=== PATIENT | female | born 1955 | race Caucasian/White ===

== ENCOUNTER 2020-05-18 17:45 | Observation (INO) ==
[2020-05-18] MEDS ORDERED: Ondansetron 4 mg VIAL 2 MG/ML 2 ml VIAL IV ONE (18:36)
[2020-05-18] MEDS ORDERED: Lorazepam PYXIS KEY PRN (18:36)
[2020-05-18] MEDS ORDERED: HYDROmorphone 1 MG/1 ML SYRINGE IV ONE (18:36)
[2020-05-18] MEDS ORDERED: LORazepam 2 mg VIAL 1 ml IV ONE (18:36)
[2020-05-18] MEDS ORDERED: NS 0.9% 1000 ml BAG 1,000 ML IV ONE (18:37)
[2020-05-18] MEDS ORDERED: Dexamethasone IV 4 MG/ML VIAL 1 ml VIAL IV SLOW PU ONE (18:41)
[2020-05-18 19:03] LABS: ABS Basophils 0.1 10^3/ul (0-0.2); ABS Eosinophils 0.2 10^3/ul (0-0.6); ABS Lymphocytes 3.5 10^3/ul (1.0-4.8); ABS Monocytes 0.7 10^3/ul (0-0.8); ABS Neutrophils 9.4 10^3/ul (1.5-7.7); Eosinophil % 1.1 %; Hematocrit 42 % (35-47); Hemoglobin 14.4 g/dL (12.0-16.0); Lymphocyte % 25.3 %; Mean Corpuscular HGB Conc 34 g/dL (31-36); Mean Corpuscular Hemoglobin 31 pg (27-31); Mean Corpuscular Volume 90 fL (80-97); Mean Platelet Volume 7.9 fL (7.4-10.4); Nucleated Red Blood Cells % 0.1; Platelet Count 281 10^3/uL (150-450); Red Blood Count 4.67 10^6 /uL (3.70-4.87); Red Cell Distribution Width 13 % (10-15); White Blood Count 13.8 10^3/uL (3.5-10.8)
[2020-05-18 19:25] LABS: Albumin 4.4 g/dL (3.2-5.2); Albumin/Globulin Ratio 1.5 (1-3); C Reactive Protein 1.71 mg/L (<8.01); Calcium 10.1 mg/dL (8.6-10.3); EGFR African American 75.8 (>60); EGFR Non-African American 62.6 (>60); Globulin 2.9 g/dL (2-4); Potassium 3.3 mmol/L (3.5-5.0); Total Bilirubin 0.4 mg/dL (0.2-1.0); Total Protein 7.3 g/dL (6.4-8.9)
[2020-05-18] MEDS ORDERED: Iohexol 300 (CONTRAST) 10 ML SDV IV ONE (20:51)
[2020-05-18] MEDS ORDERED: Magnesium Hydroxide LIQ 30 ML UDC PO PRN (22:19)
[2020-05-18] MEDS ORDERED: Enoxaparin 40 MG/0.4 ML SYR SUBCUT SCH (23:00)
[2020-05-18] MEDS: Morphine 2 MG/ML SYRINGE IV PRN (23:52)
[2020-05-19 00:41] LABS: Urine Appearance Clear; Urine Bilirubin Negative (Negative); Urine Blood 1+ (Negative); Urine Color Yellow; Urine Glucose Negative (Negative); Urine Ketones Negative (Negative); Urine Nitrite Negative (Negative); Urine Protein Negative (Negative); Urine Specific Gravity 1.041 (1.010-1.030); Urine Urobilinogen Negative (Negative)
[2020-05-19 01:05] LABS: Urine Bacteria Absent (Absent); Urine Red Blood Cell 1+(3-5/hpf) (Absent); Urine White Blood Cell Absent (Absent)
[2020-05-19] MEDS: Morphine 2 MG/ML SYRINGE IV PRN ×2 (04:46→10:25)
[2020-05-19 05:49] LABS: ABS Lymphocytes 0.8 10^3/ul (1.0-4.8); ABS Monocytes 0.2 10^3/ul (0-0.8); ABS Neutrophils 12.2 10^3/ul (1.5-7.7); Hematocrit 40 % (35-47); Hemoglobin 13.5 g/dL (12.0-16.0); Lymphocyte % 6.1 %; Mean Corpuscular HGB Conc 34 g/dL (31-36); Mean Corpuscular Hemoglobin 31 pg (27-31); Mean Corpuscular Volume 90 fL (80-97); Mean Platelet Volume 7.9 fL (7.4-10.4); Platelet Count 270 10^3/uL (150-450); Red Blood Count 4.41 10^6 /uL (3.70-4.87); Red Cell Distribution Width 13 % (10-15); White Blood Count 13.3 10^3/uL (3.5-10.8)
[2020-05-19 06:54] LABS: Albumin 4.1 g/dL (3.2-5.2); Calcium 9.1 mg/dL (8.6-10.3); Potassium 4.3 mmol/L (3.5-5.0); Total Bilirubin 0.4 mg/dL (0.2-1.0)
[2020-05-19 07:00] LABS: Albumin/Globulin Ratio 1.5 (1-3); BUN/Creatinine Ratio 26.5 (8-20); EGFR African American 104.7 (>60); EGFR Non-African American 86.6 (>60); Globulin 2.7 g/dL (2-4); Total Protein 6.8 g/dL (6.4-8.9)
[2020-05-19 09:00] VITALS: BP 160/98
[2020-05-19] MEDS ORDERED: Calcium/Vitamin D TAB 250/125 TAB PO SCH (09:00)
[2020-05-19] MEDS ORDERED: Aspirin EC 81 mg TAB.EC (enteric coated) PO SCH (09:00)
[2020-05-19] MEDS ORDERED: Senna TAB 8.6 mg TAB PO SCH (09:00)
== END 2020-05-19 11:01 | disposition home or self-care (01) | DRG 93 ==
LOC: ED 17:45 → MED 22:19 → INTOOBSV 22:19
PROVIDERS: ADMIT Internal Medicine Hematology & Oncology; ATTEND Internal Medicine Hematology & Oncology